=== PATIENT | male | born 1965 | race Caucasian/White ===

== ENCOUNTER → 2016-07-07 | Outpatient (CLI) | payer OTHER ==
[~2016-07-07] MED LIST: ALBUTEROL0.09 MG/A1 INH; DULE1ARO1 INH; PRAVACHOL20 MG PO; PREDNICOT20 MG PO; SINGULAIR10 MG PO; SYNTHROID0.1 MG PO; ZITHROMAX Z PA250 MG PO
[2016-07-07 08:14] LABS: ALBUMIN 3.7 gm/dl (3.1-4.5); ALKALINE PHOSPHATASE 45 U/L (45-117); BILIRUBIN, TOTAL 0.4 mg/dl (0.2-1.0); BUN 19 mg/dl (7-24); CARBON DIOXIDE 27 mmol/L (21-32); CHLORIDE 105 mmol/L (98-107); EST GLOM FILT AFRICAN AMERICAN > 60 ml/min; GLUCOSE 109 mg/dL (65-99); POTASSIUM 4.4 mmol/L (3.5-5.1); SGOT/AST 19 IU/L (3-35); SGPT/ALT 41 U/L (12-78); SODIUM 142 mmol/L (136-145); TOTAL PROTEIN 6.9 gm/dL (6.4-8.2)
[2016-07-07 08:23] LABS: FREE T4 0.71 ng/dl (0.76-1.46); THYROID STIM HORMONE (HS) 22.9 uIU/ml (0.358-4.75)
[2016-07-07 08:48] LABS: HEMOGLOBIN A1c 5.6 % (4.8-5.6)
[2016-07-08 06:10] LABS: ALBUMIN SERUM 4.4 g/dL (3.5-5.5); SEX HORMONE BINDING GLOBULIN 25.5 nmol/L (16.5-55.9)
[2016-07-11 09:04] LABS: TESTOSTERONE, TOTAL 352.1 ng/dL (348.0-1197.0)
== END | disposition home or self-care (01) ==
LOC: LAB 06:59
PROVIDERS: Nurse Practitioner Family
DX: Z12.5 Encounter for screening for malignant neoplasm of prostate (principal); E03.9 Hypothyroidism, unspecified; R73.03 Prediabetes; R68.82 Decreased libido; E55.9 Vitamin D deficiency, unspecified

== ENCOUNTER → 2016-09-22 | Outpatient (CLI) | payer OTHER ==
[2016-09-22 09:27] LABS: FREE T4 1.57 ng/dl (0.76-1.46)
[2016-09-22 09:28] LABS: THYROID STIM HORMONE (HS) 0.023 uIU/ml (0.358-4.75)
== END | disposition home or self-care (01) ==
LOC: LAB 08:32
PROVIDERS: Nurse Practitioner Family
DX: E03.9 Hypothyroidism, unspecified (principal)

== ENCOUNTER 2022-02-08 10:04 | Emergency (ER) | payer OTHER ==
[~2022-02-08] VITALS: Wt 100.7 kg
[2022-02-08 10:40] LABS: BASO % 0.5 % (0.0-1.0); EOS # 0.1 10*3/uL (0.0-0.4); EOS % 2.4 % (1.0-4.0); HEMATOCRIT 40.3 % (42.0-52.0); LYMPH % 33.1 % (27.0-41.0); MEAN CELL VOLUME 92.4 fl (80.0-94.0); MEAN CORPUSCULAR HGB 31.9 pg (27.0-31.0); MEAN CORPUSCULAR HGB CONC 34.5 g/dl (33.0-37.0); MEAN PLATELET VOLUME 10.8 fl (9.6-12.3); MONO # 0.7 10*3/uL (0.1-1.0); MONO % 11.1 % (3.0-9.0); NEUT # 3.1 10*3/uL (2.3-7.9); NEUT % 52.1 % (47.0-73.0); PLATELET COUNT AUTOMATED 212 10*3/uL (130-400); RED BLOOD COUNT 4.36 10*6/uL (4.50-5.90); RED CELL DISTRI WIDTH 12.2 % (0-14.5)
[2022-02-08 10:41] LABS: BILIRUBIN Negative (Negative); BLOOD Negative (Negative); CLARITY Clear (Clear); COLOR Yellow (Yellow); GLUCOSE Negative (Negative); KETONE Negative (Negative); LEUKO ESTERASE Negative (Negative); NITRITE Negative (Negative); PH 5.5 (4.5-8.0); SPECIFIC GRAVITY 1.015 (1.001-1.030); UROBILINOGEN 0.2 E.U./dl (0.0-1.0)
[2022-02-08 10:51] LABS: RBC 0-2 rbc/hpf (0-2)
[2022-02-08 10:56] LABS: ALKALINE PHOSPHATASE 49 U/L (45-117); BUN 23 mg/dl (7-24); CHLORIDE 110 mmol/L (98-107); CREATININE 0.98 mg/dL (0.70-1.30); LIPASE 214 U/L (73-393); POTASSIUM 4.1 mmol/L (3.5-5.1); SGOT/AST 20 IU/L (3-35); SGPT/ALT 42 U/L (12-78); SODIUM 142 mmol/L (136-145); TOTAL PROTEIN 6.4 gm/dL (6.4-8.2)
[2022-02-08] MEDS ORDERED: DICYCLOMINE HCL10 MG PO (11:59)
[2022-02-08] MEDS ORDERED: PREVACID15 M2 PO (11:59)
== END 2022-02-08 12:03 | disposition home or self-care (01) ==
LOC: ED 10:04
PROVIDERS: Emergency Medicine
DX: R10.11 Right upper quadrant pain (principal); R51.9 Headache, unspecified; Z79.2 Long term (current) use of antibiotics; Z79.899 Other long term (current) drug therapy

== ENCOUNTER 2023-09-26 12:38 | Emergency (ER) | payer OTHER ==
[~2023-09-26] VITALS: Ht 177.8 cm; Wt 105.2 kg
[~2023-09-26 12:38] MED LIST changes: +DICYCLOMINE HCL10 MG PO; +PREVACID15 M2 PO; -SYNTHROID0.1 MG PO; +Synthroid,Lev150 MCG PO
[2023-09-26] MEDS ORDERED: BUSPIRONE10 MG PO (12:53)
[2023-09-26] MEDS ORDERED: hydrOXYzine pamoate 25 MG CAP PO ONE (13:20)
[2023-09-26] MEDS ORDERED: ACETAMINOPHEN 325 MG TAB PO ONE (13:20)
[2023-09-26 13:34] LABS: BASO % 0.5 % (0.0-1.0); EOS % 0.4 % (1.0-4.0); HEMATOCRIT 43.3 % (42.0-52.0); LYMPH # 1.6 10*3/uL (1.3-4.4); LYMPH % 21.2 % (27.0-41.0); MEAN CELL VOLUME 93.3 fl (80.0-94.0); MEAN CORPUSCULAR HGB 30.8 pg (27.0-31.0); MEAN PLATELET VOLUME 10.5 fl (9.6-12.3); MONO # 0.5 10*3/uL (0.1-1.0); MONO % 6.1 % (3.0-9.0); NEUT # 5.2 10*3/uL (2.3-7.9); NEUT % 71.5 % (47.0-73.0); PLATELET COUNT AUTOMATED 203 10*3/uL (130-400); RED BLOOD COUNT 4.64 10*6/uL (4.50-5.90); RED CELL DISTRI WIDTH 12.2 % (0-14.5); WHITE BLOOD COUNT 7.3 10*3/uL (4.8-10.8)
[2023-09-26 13:54] LABS: ALKALINE PHOSPHATASE 58 U/L (46-116); BUN 10 mg/dl (9-23); CHLORIDE 104 mmol/L (98-107); SGPT/ALT 32 U/L (5-49); TOTAL PROTEIN 6.8 gm/dL (6.0-8.0)
[2023-09-26] MEDS ORDERED: HYDROXYZINE HCL25 MG PO (14:56)
== END 2023-09-26 15:06 | disposition home or self-care (01) ==
LOC: ED 12:38
PROVIDERS: Physician Assistant Medical
DX: F41.9 Anxiety disorder, unspecified (principal); F31.9 Bipolar disorder, unspecified; E03.9 Hypothyroidism, unspecified; J45.909 Unspecified asthma, uncomplicated